=== PATIENT | male | born 1945 | race Caucasian/White ===

== ENCOUNTER → 2017-09-05 | Outpatient (CLI) | payer OTHER ==
[~2017-09-05] MED LIST: ASPI81TA28 PO; ATOR10TA82 PO; ERGO500037 PO; HYDR25TA4 PO; LISI-725 PO; SIME1CAP9; ZNTT/150 PO
[2017-09-05 10:34] LABS: BASO ABS # 0.15 K/uL (0-0.2); EOS % 3.3 %; HEMATOCRIT 48.9 % (42-52); IG% 0.6 %; LYMPH % 8.5 %; LYMPH ABS # 1.27 K/uL (1.2-3.4); MEAN CORPUSCULAR HEMOGLOBIN 22.4 pg (25-34); MONO % 7.1 %; NEUT % 79.5 %; PLATELET COUNT 853 K/uL (130-400); RED BLOOD COUNT 6.79 M/uL (4.7-6.1); WHITE BLOOD COUNT 14.98 K/uL (4.8-10.8)
[2017-09-05 10:44] LABS: COMPLETE YES; MEAN CORPUSCULAR HGB CONC 31.1 g/dl (32-36)
== END | disposition home or self-care (01) ==
LOC: C.LABSPEC 10:23
PROVIDERS: ATTEND Internal Medicine
DX: D45 Polycythemia vera (principal)